=== PATIENT | female | born 1955 | race Caucasian/White ===

== ENCOUNTER 2021-09-04 22:35 | Emergency (ER) | payer MEDICARE, SELFPAY ==
--- NOTE | ~2021-09-04 | XR_ITS ---
EXAMINATION: XR CHEST CLINICAL INFORMATION: Asthma COMPARISON: 04/17/2015 TECHNIQUE: Frontal view of the chest was obtained. FINDINGS: Multiple surgical clips are noted in the cervical spine region. Biopsy clip overlies the left breast. Lungs are clear. No consolidation, pneumothorax, or pleural effusion. Lungs are normal. Cardiac and mediastinal contours are normal. No acute osseous findings. XR/XR chest 1V IMPRESSION: No acute cardiopulmonary findings.
[2021-09-04 22:41] VITALS: BP 154/87; PULSE 103; RESP 23; TEMP 37.1; O2SAT 98; BMI 29.2
[2021-09-05] VITALS (9 sets, daily range): BP systolic 97–166; BP diastolic 27–85; PULSE 78–113; RESP 14–20; TEMP 36.8; O2SAT 96–98
[2021-09-05 01:07] LABS: COVID-19 Test Negative (Negative); IDNOW Serial# 55D5AD1C
[2021-09-05 01:10] LABS: IDNOW Serial# 9DB6401D; Influenza A Negative (Negative); Influenza B2 Negative (Negative)
--- NOTE | 2021-09-05 01:12 | ECG_ITS ---
Test Reason : ASTHMA Blood Pressure : / mmHG Vent. Rate : 078 BPM Atrial Rate : 078 BPM P-R Int : 140 ms QRS Dur : 076 ms QT Int : 372 ms P-R-T Axes : 047 003 021 degrees QTc Int : 424 ms Normal sinus rhythm Normal ECG No previous ECGs available Referred By: Myranda Taylor Electronically Signed By:EUGENIE MARTIN MD
[2021-09-05] MEDS: Albuterol Sulfate (0.083%) 2.5 MG/3 ML VIAL.NEB 5 MG INHALE (01:34)
--- NOTE | 2021-09-05 01:43 | ED_ITS ---
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 since that time patient reports that she has had increasing shortness of breath with dry cough but denies any unilateral calf swelling but also reports some chills but denies any palpitation. Patient also reports that she has been feeling dizzy with the room spinning and states that she has had this before and that was vertigo but that it went away for a little while and now has come back. She denies any associated visual/ auditory/speech issues in association with the vertigo and denies any gait instability. Related Data Previous Rx's Medication Instructions Recorded benzonatate 200 mg capsule 200 mg PO TID PRN #10 cap 09/05/21 doxycycline hyclate 100 mg capsule 100 mg PO BID 5 Days #10 cap 09/05/21 meclizine 12.5 mg tablet 12.5 mg PO TID PRN #10 tab 09/05/21 Allergies Allergy/AdvReac Type Severity Reaction Status Date / Time No Known Allergies Allergy Verified 09/04/21 22:41 [No Known Allergies*] Review of Systems Review of Systems: Pertinent positives and negatives as stated in HPI 10 point review of systems is otherwise negative. PMFSH Past Medical History Source: nursing notes reviewed Social History Social History Advance Directives: No Advance Directives Information Provided: Yes Physical Exam Vital Signs: Vital Signs: Last Vital Signs Temp 98.3 F 09/05/21 05:50 Pulse 87 09/05/21 07:03 Resp 14 09/05/21 07:03 BP 109/64 09/05/21 07:03 Pulse Ox 97 09/05/21 07:03 BMI result Body Mass Index 29.2 VITAL SIGNS: Reviewed. GENERAL: Well developed, well nourished, in no acute distress. HEAD: Normocephalic/atraumatic EYES: PERRLA, EOMI intact without pain, no nystagmus EARS: Ext canals without abnormality OROPHARYNX: no oral lesions noted, posterior pharynx clear LUNGS: Normal breath sounds , mildly decreased bibasilar without rhonchi/ rales/wheeze. SpO2<98> CARDIOVASCULAR: Regular rate and rhythm without noted murmurs ABDOMEN: Soft, non-tender, non-distended with bowel sounds. MUSCULOSKELETAL: No tenderness, deformities, or effusions noted on gross inspection. EXTREMITIES: No cyanosis, clubbing or edema. SKIN: Inspection of the skin reveals no rashes NEUROLOGIC: Alert and oriented x 4. Strength and sensation to light touch were grossly intact x 4 , no pronator drift, no facial asymmetry, cranial nerves 2-12 grossly intact, no truncal ataxia, no gait instability. Course Course Course Narrative: 65-year-old female with history and clinical presentation with recent travel and reports shortness of breath with dizziness. Although patient is noted to have a leukocytosis with a left shift the chest x-ray, abdomen exam, and urinalysis are without acute findings. Low clinical suspicion for asthma exacerbation and will obtain a D-dimer as there are concerns raised for possible PE. Patient is orthostatics negative, however nursing did inform me that patient's initial, laying down blood pressure, was noted to be 90s/30s. On re-evaluation patient has improved cough after receiving Tessalon, she reports breathing much better after the breathing treatments that she has re ceived since being here. She has remained afebrile and received 1 L fluids and on repeat CBC there is noted improvement of values. Patient was provided with 12.5 mg of meclizine and on re-evaluation she states that she feels much better, that she is no longer dizzy and states that she has had this previously and was told that she had vertigo, but recently it has recurred and when she informed he r physician she states they did nothing . All conversations occurred with a electronics system mechanic. MDM - Asthma Lab Data Result diagrams: 09/05/21 04:25 09/05/21 01:49 Labs: Lab Results 09/05/21 09/05/21 09/05/21 Range/Units 00:52 00:52 01:49 WBC 15.4 H (4.8-10.8) X10*3/uL RBC 4.63 (4.20-5.50) X10*6/uL Hgb 14.1 (12.0-16.0) g/dl Hct 41.3 (37.0-47.0) % MCV 89.2 (80.0-98.0) fL MCH 30.5 (27.0-33.0) pg MCHC 34.1 (31.0-35.0) g/dl RDW 13.8 (11.0-16.0) % Plt Count 271 (160-400) X10*3/uL MPV 8.9 L (9.4-12.3) fL Immature Gran % (Auto) 0.4 (0.0-0.4) % Neut % (Auto) 74.1 H (45-73) % Lymph % (Auto) 18.1 L (20-40) % [place] % (Auto) 5.8 (2-11) % Eos % (Auto) 1.4 (0-4) % Baso % (Auto) 0.2 (0-2) % Lymph # (Auto) 2.8 (1.2-4.9) X10*3/uL [place] # (Auto) 0.9 (0.1-1.2) X10*3/uL Eos # (Auto) 0.2 (0.0-0.4) X10*3/uL Baso # (Auto) 0.0 (0.0-0.2) X10*3/uL Abs Immat Gran (auto) 0.06 H (0.00-0.03) X10*3/uL Absolute Neuts (auto) 11.4 H (2.0-8.3) x10*3/uL Absolute Nucleated RBC 0.000 (0.0-0.012) X10*3/uL Nucleated RBC % (auto) 0.0 (0.0-0.2) /100WBC D-Dimer High Sensitivty NG/ML Sodium (135-145) mmol/L Potassium (3.3-5.1) mmol/L Chloride (96-108) mmol/L Carbon Dioxide (22-29) mmol/L Anion Gap (12-20) BUN (9-16) mg/dL Creatinine (0.5-1.4) mg/dL Estim Creat Clear Calc Estimated GFR Random Glucose (60-115) mg/dL Calcium (8.4-10.2) mg/dL Total Bilirubin (0.0-1.0) mg/dL AST (5-31) U/L ALT (0-31) U/L Alkaline Phosphatase (39-117) U/L Troponin I High Sens (<3.5-17.0) ng/L B-Natriuretic Peptide (<100) pg/mL Total Protein (6.5-8.0) g/dL Albumin (3.5-5.0) g/dL Urine Color Urine Appearance Urine pH (5.0-8.0) Ur Specific [place] (1.005-1.025) Urine Protein (NEG-TRACE) MG/DL Urine Glucose (UA) (NEG) MG/DL Urine Ketones (NEG) MG/DL Urine Blood (NEG) Urine Nitrite (NEG) Ur Leukocyte Esterase (NEG) Urine RBC (0) /HPF Urine WBC (0-4) /HPF Ur Squamous Epith Cells /LPF Urine Bacteria /LPF Urine Mucus /LPF COVID-19 (MATT) Negative (Negative) COVID-19 Clin Com See Note Influenza Type A (OLIVIA) Negative (Negative) Influenza Type B ([facility]IVIA) Negative (Negative) Influenza A & B Note See Note 09/05/21 09/05/21 09/05/21 Range/Units 01:49 01:49 02:30 WBC (4.8-10.8) X10*3/uL RBC (4.20-5.50) X10*6/uL Hgb (12.0-16.0) g/dl Hct (37.0-47.0) % MCV (80.0-98.0) fL MCH (27.0-33.0) pg MCHC (31.0-35.0) g/dl RDW (11.0-16.0) % Plt Count (160-400) X10*3/uL MPV (9.4-12.3) fL Immature Gran % (Auto) (0.0-0.4) % Neut % (Auto) (45-73) % Lymph % (Auto) (20-40) % [place] % (Auto) (2-11) % Eos % (Auto) (0-4) % Baso % (Auto) (0-2) % Lymph # (Auto) (1.2-4.9) X10*3/uL [place] # (Auto) (0.1-1.2) X10*3/uL Eos # (Auto) (0.0-0.4) X10*3/uL Baso # (Auto) (0.0-0.2) X10*3/uL Abs Immat Gran (auto) (0.00-0.03) X10*3/uL Absolute Neuts (auto) (2.0-8.3) x10*3/uL Absolute Nucleated RBC (0.0-0.012) X10*3/uL Nucleated RBC % (auto) (0.0-0.2) /100WBC D-Dimer High Sensitivty NG/ML Sodium 142 (135-145) mmol/L Potassium 3.8 (3.3-5.1) mmol/L Chloride 109 H (96-108) mmol/L Carbon Dioxide 24 (22-29) mmol/L Anion Gap 13 (12-20) BUN 11 (9-16) mg/dL Creatinine 0.84 (0.5-1.4) mg/dL Estim Creat Clear Calc 63.1 Estimated GFR > 60 Random Glucose 146 H (60-115) mg/dL Calcium 9.1 (8.4-10.2) mg/dL Total Bilirubin 0.2 (0.0-1.0) mg/dL AST 15 (5-31) U/L ALT 16 (0-31) U/L Alkaline Phosphatase 96 (39-117) U/L Troponin I High Sens < 3.5 (<3.5-17.0) ng/L B-Natriuretic Peptide 61 (<100) pg/mL Total Protein 6.3 L (6.5-8.0) g/dL Albumin 3.7 (3.5-5.0) g/dL Urine Color YELLOW Urine Appearance CLEAR Urine pH 6.0 (5.0-8.0) Ur Specific [place] 1.025 (1.005-1.025) Urine Protein NEG (NEG-TRACE) MG/DL Urine Glucose (UA) NEG (NEG) MG/DL Urine Ketones NEG (NEG) MG/DL Urine Blood NEG (NEG) Urine Nitrite NEG (NEG) Ur Leukocyte Esterase TRACE H (NEG) Urine RBC 0 (0) /HPF Urine WBC 0-2 (0-4) /HPF Ur Squamous Epith Cells 3+ /LPF Urine Bacteria NONE /LPF Urine Mucus 4+ /LPF COVID-19 (MATT) (Negative) COVID-19 Clin Com Influenza Type A ([facility]IVIA) (Negative) Influenza Type B ([facility]) (Negative) Influenza A & B Note 09/05/21 09/05/21 Range/Units 02:53 04:25 WBC 13.6 H (4.8-10.8) X10*3/uL RBC 4.09 L (4.20-5.50) X10*6/uL Hgb 12.5 (12.0-16.0) g/dl Hct 37.0 (37.0-47.0) % MCV 90.5 (80.0-98.0) fL MCH 30.6 (27.0-33.0) pg MCHC 33.8 (31.0-35.0) g/dl RDW 13.9 (11.0-16.0) % Plt Count 240 (160-400) X10*3/uL MPV 8.8 L (9.4-12.3) fL Immature Gran % (Auto) 0.5 H (0.0-0.4) % Neut % (Auto) 81.9 H (45-73) % Lymph % (Auto) 9.1 L (20-40) % [place] % (Auto) 7.7 (2-11) % Eos % (Auto) 0.7 (0-4) % Baso % (Auto) 0.1 (0-2) % Lymph # (Auto) 1.2 (1.2-4.9) X10*3/uL [place] # (Auto) 1.1 (0.1-1.2) X10*3/uL Eos # (Auto) 0.1 (0.0-0.4) X10*3/uL Baso # (Auto) 0.0 (0.0-0.2) X10*3/uL Abs Immat Gran (auto) 0.07 H (0.00-0.03) X10*3/uL Absolute Neuts (auto) 11.1 H (2.0-8.3) x10*3/uL Absolute Nucleated RBC 0.000 (0.0-0.012) X10*3/uL Nucleated RBC % (auto) 0.0 (0.0-0.2) /100WBC D-Dimer High Sensitivty < 150 NG/ML Sodium (135-145) mmol/L Potassium (3.3-5.1) mmol/L Chloride (96-108) mmol/L Carbon Dioxide (22-29) mmol/L Anion Gap (12-20) BUN (9-16) mg/dL Creatinine (0.5-1.4) mg/dL Estim Creat Clear Calc Estimated GFR Random Glucose (60-115) mg/dL Calcium (8.4-10.2) mg/dL Total Bilirubin (0.0-1.0) mg/dL AST (5-31) U/L ALT (0-31) U/L Alkaline Phosphatase (39-117) U/L Troponin I High Sens (<3.5-17.0) ng/L B-Natriuretic Peptide (<100) pg/mL Total Protein (6.5-8.0) g/dL Albumin (3.5-5.0) g/dL Urine Color Urine Appearance Urine pH (5.0-8.0) Ur Specific [place] (1.005-1.025) Urine Protein (NEG-TRACE) MG/DL Urine Glucose (UA) (NEG) MG/DL Urine Ketones (NEG) MG/DL Urine Blood (NEG) Urine Nitrite (NEG) Ur Leukocyte Esterase (NEG) Urine RBC (0) /HPF Urine WBC (0-4) /HPF Ur Squamous Epith Cells /LPF Urine Bacteria /LPF Urine Mucus /LPF COVID-19 (MATT) (Negative) COVID-19 Clin Com Influenza Type A ([facility]IA) (Negative) Influenza Type B ([facility]) (Negative) Influenza A & B Note ECG Data Attestation: I personally reviewed and interpreted this ECG as follows: Prior ECG tracings: not available for review Interpretation: NSR, HR- 78, no STEMI, ID /QRS / QTC are within normal limits. Discharge Plan Discharge Clinical Impression: Vertigo, Chronic asthma Patient Disposition: Home, Self-Care Instructions: Asthma (ED), Vertigo (ED) Additional Instructions: 1. Reanudar todos los medicamentos caseros seg?n lo prescrito. 2. Se mitchell enviado a wise farmacia jemal receta para el v?rtigo y la tos. 3. Contin?e manteni?ndose rashel hidratado, especialmente con agua. 4. Le recomendamos encarecidamente que sharath un seguimiento con wise proveedor de atenci?n primaria al regresar a [place]. Regrese a la adrián de emergencias si los s?ntomas empeoran. Prescriptions: New benzonatate 200 mg capsule 200 mg PO TID PRN (Reason: cough) Qty: 10 0RF meclizine 12.5 mg tablet 12.5 mg PO TID PRN (Reason: dizziness) Qty: 10 0RF doxycycline hyclate 100 mg capsule 100 mg PO BID 5 Days Qty: 10 0RF Print Language: Lao
[2021-09-05 01:53] LABS: MANUAL DIFF FLAG NO
[2021-09-05 01:54] LABS: Basophils Percent Auto 0.2 % (0-2); Eosinophils Absolute Auto 0.2 X10*3/uL (0.0-0.4); Eosinophils Percent Auto 1.4 % (0-4); Hematocrit 41.3 % (37.0-47.0); Hemoglobin 14.1 g/dl (12.0-16.0); Imm Gran Abs Auto 0.06 X10*3/uL (0.00-0.03); Imm Gran Pct Auto 0.4 % (0.0-0.4); Lymphocytes Absolute Auto 2.8 X10*3/uL (1.2-4.9); Lymphocytes Percent Auto 18.1 % (20-40); Mean Corpuscular HGB Conc 34.1 g/dl (31.0-35.0); Mean Corpuscular Hemoglobin 30.5 pg (27.0-33.0); Mean Corpuscular Volume 89.2 fL (80.0-98.0); Mean Platelet Volume 8.9 fL (9.4-12.3); Monocytes Absolute Auto 0.9 X10*3/uL (0.1-1.2); Monocytes Percent Auto 5.8 % (2-11); Neutrophils Absolute Auto 11.4 x10*3/uL (2.0-8.3); Neutrophils Percent Auto 74.1 % (45-73); Platelet Count 271 X10*3/uL (160-400); Red Blood Count 4.63 X10*6/uL (4.20-5.50); Red Cell Distribution Width 13.8 % (11.0-16.0); White Blood Count 15.4 X10*3/uL (4.8-10.8)
[2021-09-05 02:13] LABS: B Type Natriuretic Peptide 61 pg/mL (<100); Troponin-I High Sensitivity < 3.5 ng/L (<3.5-17.0)
[2021-09-05 02:14] LABS: Alanine Aminotransferase 16 U/L (0-31); Albumin Level 3.7 g/dL (3.5-5.0); Alkaline Phosphatase 96 U/L (39-117); Anion Gap 13 (12-20); Aspartate Amino Transferase 15 U/L (5-31); Bilirubin Total 0.2 mg/dL (0.0-1.0); Blood Urea Nitrogen 11 mg/dL (9-16); Calcium 9.1 mg/dL (8.4-10.2); Carbon Dioxide 24 mmol/L (22-29); Chloride 109 mmol/L (96-108); Creatinine Clr Calc Pharmacy 63.1; Estimated Glomerular Filt Rate > 60; Glucose Random 146 mg/dL (60-115); Potassium 3.8 mmol/L (3.3-5.1); Sodium 142 mmol/L (135-145); Total Protein 6.3 g/dL (6.5-8.0)
[2021-09-05 02:38] LABS: Appearance Urine CLEAR; Color Urine YELLOW; Glucose Urine UA NEG (NEG); Leukocyte Esterase Urine TRACE (NEG); Nitrite Urine NEG (NEG); Specific Gravity - Urine 1.025 (1.005-1.025); Urine Blood NEG (NEG); Urine Ketones NEG (NEG); Urine Protein NEG (NEG-TRACE)
[2021-09-05] MEDS: 0.9 % Sodium Chloride 1,000 ML 999 ML IV (02:52)
[2021-09-05 02:57] LABS: Mucus Urine 4+ /LPF; RBC Urine 0 /HPF (0); Squamous Epithelial Cell Urine 3+ /LPF; WBC Urine 0-2 /HPF (0-4)
[2021-09-05 03:09] LABS: D Dimer High Sensitivity < 150 NG/ML
[2021-09-05] MEDS: Benzonatate 100 MG CAPSULE 200 MG PO (03:28)
[2021-09-05] MEDS: Lidocaine HCl Viscous 2 % 15 ML SOLUTION 10 ML MUCOUS MEM (03:54)
[2021-09-05] MEDS: Magnesium Hydrox/Alum Hydrox 30 ML ORAL.SUSP PO (03:55)
[2021-09-05] MEDS: Albuterol Sulfate 90 MCG 8 GM INHALER 4 PUFF INHALE (04:31)
[2021-09-05 04:32] LABS: MANUAL DIFF FLAG NO
[2021-09-05 04:33] LABS: Basophils Percent Auto 0.1 % (0-2); Eosinophils Absolute Auto 0.1 X10*3/uL (0.0-0.4); Eosinophils Percent Auto 0.7 % (0-4); Hemoglobin 12.5 g/dl (12.0-16.0); Imm Gran Abs Auto 0.07 X10*3/uL (0.00-0.03); Imm Gran Pct Auto 0.5 % (0.0-0.4); Lymphocytes Absolute Auto 1.2 X10*3/uL (1.2-4.9); Lymphocytes Percent Auto 9.1 % (20-40); Mean Corpuscular HGB Conc 33.8 g/dl (31.0-35.0); Mean Corpuscular Hemoglobin 30.6 pg (27.0-33.0); Mean Corpuscular Volume 90.5 fL (80.0-98.0); Mean Platelet Volume 8.8 fL (9.4-12.3); Monocytes Absolute Auto 1.1 X10*3/uL (0.1-1.2); Monocytes Percent Auto 7.7 % (2-11); Neutrophils Absolute Auto 11.1 x10*3/uL (2.0-8.3); Neutrophils Percent Auto 81.9 % (45-73); Platelet Count 240 X10*3/uL (160-400); Red Blood Count 4.09 X10*6/uL (4.20-5.50); Red Cell Distribution Width 13.9 % (11.0-16.0); White Blood Count 13.6 X10*3/uL (4.8-10.8)
[2021-09-05] MEDS: Meclizine HCl 12.5 MG TABLET PO (06:50)
--- NOTE | 2021-09-05 07:11 | PC.NURSE ---
report given to KHRIS Oliva
--- NOTE | 2021-09-05 08:27 | PC.NURSE ---
pt alert and oriented, skin appropriate for ethnicity, pt states that her dizziness has improved, intermittent dry cough noticed, pt denies pain and vs stable
== END 2021-09-05 08:34 | disposition home or self-care (01) ==
PROVIDERS: Emergency Provider Student in an Organized Health Care Education/Training Program
DX: J45.909 Unspecified asthma, uncomplicated (principal); R06.02 Shortness of breath; R42 Dizziness and giddiness; F32.A Depression, unspecified; F41.9 Anxiety disorder, unspecified; Z79.891 Long term (current) use of opiate analgesic; Z79.899 Other long term (current) drug therapy; Z20.822 Contact with and (suspected) exposure to COVID-19
CPT/HCPCS: 36415; 71045; 80053; 81001; 83880; 84484; 85025; 85379; 87502; 87635; 93005; 94640; 96360; 99284